=== PATIENT | male | born 1965 | race African-American/Black ===

== ENCOUNTER 2019-03-15 23:46 | Emergency (ER) | payer SELFPAY ==
[~2019-03-15] VITALS: Ht 175.3 cm; Wt 84.1 kg
[2019-03-16] MEDS ORDERED: LABETALOL HCL 5 MG/ML 20 ML VIAL IVP ONE ×2 (00:45→02:00)
[2019-03-16 00:55] LABS: GLUCOSE,POINT OF CARE 91 MG/DL (70-110)
[2019-03-16 01:12] LABS: EOSINOPHILS % (AUTO) 0.5 % (1.0-6.0); HEMATOCRIT 43.4 % (41-53); HEMOGLOBIN 14.3 g/dL (13.5-17.5); LYMPHOCYTES # (AUTO) 1.7 K/uL (1.0-4.8); LYMPHOCYTES % (AUTO) 23.8 % (22.0-44.0); MEAN CORPUSCULAR HEMOGLOBIN 30.4 pg (26.0-34.0); MEAN CORPUSCULAR HGB CONC 32.9 G/dL (31.0-37.0); MEAN CORPUSCULAR VOLUME 92 fL (80-100); MONOCYTES # (AUTO) 0.5 K/uL (0.1-1.0); MONOCYTES % (AUTO) 6.4 % (2.0-9.0); NEUTROPHILS % (AUTO) 68.3 % (40.0-70.0); PLATELET COUNT (AUTO) 285 K/uL (150-450); RED CELL DISTRIBUTION WIDTH 14.4 % (11.5-14.5)
[2019-03-16 01:21] LABS: PROTHROMBIN TIME 10.3 SEC (9.4-11.6)
[2019-03-16 01:23] LABS: ANION GAP 8 mmol/L (8-16); CARBON DIOXIDE 26 mmol/L (22-29); CHLORIDE 105 mmol/L (98-107); CREATININE 1.66 mg/dL (0.60-1.30); GLOMERULAR FILTR. RATE CALC 52 mL/min (>60); GLUCOSE,RANDOM 86 mg/dL (70-110); POTASSIUM 3.5 mmol/L (3.5-5.1); SODIUM SERUM 139 mmol/L (136-145); UREA NITROGEN, BLOOD 14 mg/dL (7-18)
[2019-03-16 01:48] LABS: ALANINE AMINOTRANSFERASE 22 U/L (12-78); ALBUMIN 4.4 g/dL (3.4-5.0); ALKALINE PHOSPHATASE 63 U/L (46-116); ASPARTATE AMINOTRANSFERASE 22 U/L (15-37); BILIRUBIN,TOTAL 0.7 mg/dL (0.1-1.0); CREATINE KINASE, TOTAL ONLY 279 U/L (39-308); TOTAL PROTEIN, SERUM 8.1 g/dL (6.4-8.2)
[2019-03-16 01:50] LABS: ACETAMINOPHEN < 2 mcg/mL (10-30)
[2019-03-16 02:20] VITALS: BP 196/124
== END 2019-03-16 03:13 | disposition left against medical advice (07) ==
LOC: EMS 23:51
DX: F12.10 Cannabis abuse, uncomplicated (principal); F10.10 Alcohol abuse, uncomplicated; I10 Essential (primary) hypertension; Y90.3 Blood alcohol level of 60-79 mg/100 ml
CPT/HCPCS: 36415; 70450; 80053; 82550; 82962; 84484; 85025; 85610; 93005; 96374; 96376; 99291; G0480; J3490; G0481

== ENCOUNTER 2019-07-25 17:35 | Inpatient (IN) | payer MEDICAID ==
[~2019-07-25] VITALS: Ht 180.3 cm; Wt 88.5 kg
[2019-07-25] MEDS ORDERED: SODIUM CHLORIDE 0.9% 1,000 ML IV ONE (18:15)
[2019-07-25] MEDS: LABETALOL HCL 200 MG in DEXTROSE 5%-WATER 160 ML IV PRN ×2 (18:40→20:02)
[2019-07-25 18:52] LABS: BASOPHILS % (AUTO) 0.6 % (0.0-2.0); HEMATOCRIT 43.1 % (41-53); HEMOGLOBIN 14.5 g/dL (13.5-17.5); LYMPHOCYTES # (AUTO) 0.7 K/uL (1.0-4.8); LYMPHOCYTES % (AUTO) 10.7 % (22.0-44.0); MEAN CORPUSCULAR HEMOGLOBIN 30.9 pg (26.0-34.0); MEAN CORPUSCULAR HGB CONC 33.8 G/dL (31.0-37.0); MEAN CORPUSCULAR VOLUME 91 fL (80-100); MONOCYTES # (AUTO) 0.6 K/uL (0.1-1.0); MONOCYTES % (AUTO) 9.1 % (2.0-9.0); NEUTROPHILS # (AUTO) 5.4 K/uL (1.8-7.7); NEUTROPHILS % (AUTO) 78.6 % (40.0-70.0); PLATELET COUNT (AUTO) 264 K/uL (150-450); RED BLOOD CELL COUNT(AUTO) 4.71 MIL/uL (4.50-5.90); RED CELL DISTRIBUTION WIDTH 13.5 % (11.5-14.5)
[2019-07-25 19:05] LABS: CALCIUM, TOTAL 9.3 mg/dL (8.8-10.5); CREATININE 1.83 mg/dL (0.60-1.30); POTASSIUM 4.1 mmol/L (3.5-5.1)
[2019-07-25 19:08] LABS: AMPHET/METH SCREEN,URINE NEGATIVE (NEGATIVE); BARBITURATE SCREEN, URINE NEGATIVE (NEGATIVE); BENZODIAZEPINES SCREEN,URINE NEGATIVE (NEGATIVE); CANNABINOID SCREEN,URINE POSITIVE (NEGATIVE); COCAINE SCREEN,URINE NEGATIVE (NEGATIVE); METHADONE SCREEN, URINE NEGATIVE (NEGATIVE); OPIATE SCREEN,URINE NEGATIVE (NEGATIVE)
[2019-07-25 19:09] LABS: APPEARANCE,URINE CLEAR (CLEAR); BILIRUBIN,URINE NEGATIVE (NEGATIVE); GLUCOSE, URINE (UA) NEGATIVE (NEGATIVE); KETONES,URINE NEGATIVE (NEGATIVE); LEUKOCYTE ESTERASE ,URINE NEGATIVE (NEGATIVE); NITRATE,URINE NEGATIVE (NEGATIVE); OCCULT BLOOD,URINE NEGATIVE (NEGATIVE); PROTEIN,URINE NEGATIVE (NEGATIVE); UROBILINOGEN,URINE 0.2 mg/dL (<=1.0)
[2019-07-25 19:14] LABS: PHENCYCLIDINE SCREEN,URINE POSITIVE (NEGATIVE)
[2019-07-25 19:29] LABS: ALBUMIN 4.4 g/dL (3.4-5.0); BILIRUBIN,TOTAL 1.1 mg/dL (0.1-1.0); TOTAL PROTEIN, SERUM 8.6 g/dL (6.4-8.2)
[2019-07-25 20:21] LABS: AMMONIA 19 umol/L (11-32)
[2019-07-25 20:22] LABS: TROPONIN I < 0.02 ng/mL (0.00-0.05)
[2019-07-25] MEDS ORDERED: ONDANSETRON HCL 4 MG/2 ML VIAL IVP PRN ×2 (20:30→22:30)
[2019-07-25] MEDS ORDERED: ACETAMINOPHEN 325 MG TABLET PO PRN (20:30)
[2019-07-25 20:44] VITALS: BP 176/109
[2019-07-25] MEDS: CARVEDILOL 12.5 MG TABLET PO SCH (21:46)
[2019-07-25] MEDS: HydrALAZINE HCL 20 MG/ML VIAL IVP PRN (21:54)
[2019-07-25] MEDS ORDERED: MAGNESIUM HYDROXIDE SUSPENSION 30 ML UDCUP PO PRN (22:30)
[2019-07-25] MEDS ORDERED: MORPHINE SULFATE 2 MG/ML SYRINGE IVP PRN (22:30)
[2019-07-25] MEDS ORDERED: HYDROCODONE/ACETAMINOPHEN 5-325 MG TABLET PO PRN (22:30)
[2019-07-25] MEDS ORDERED: BISACODYL 10 MG RECTAL RECTAL SUPPOSITORY PR PRN (22:30)
[2019-07-25] MEDS ORDERED: ZOLPIDEM TARTRATE 5 MG TABLET PO PRN (22:30)
[2019-07-25] MEDS: HEPARIN SODIUM,PORCINE 5,000 UNITS/ML VIAL SQ SCH (23:54)
[2019-07-26] VITALS: BP 183/99
[2019-07-26 04:00] VITALS: BP 165/105
[2019-07-26 05:00] LABS: BASOPHILS % (AUTO) 0.3 % (0.0-2.0); EOSINOPHILS % (AUTO) 0.5 % (1.0-6.0); HEMATOCRIT 36.7 % (41-53); HEMOGLOBIN 12.5 g/dL (13.5-17.5); LYMPHOCYTES # (AUTO) 0.4 K/uL (1.0-4.8); MEAN CORPUSCULAR HEMOGLOBIN 30.8 pg (26.0-34.0); MEAN CORPUSCULAR HGB CONC 34.1 G/dL (31.0-37.0); MEAN CORPUSCULAR VOLUME 90 fL (80-100); MONOCYTES # (AUTO) 0.8 K/uL (0.1-1.0); MONOCYTES % (AUTO) 13.4 % (2.0-9.0); NEUTROPHILS # (AUTO) 4.7 K/uL (1.8-7.7); NEUTROPHILS % (AUTO) 78.8 % (40.0-70.0); PLATELET COUNT (AUTO) 239 K/uL (150-450); RED BLOOD CELL COUNT(AUTO) 4.07 MIL/uL (4.50-5.90); RED CELL DISTRIBUTION WIDTH 13.5 % (11.5-14.5)
[2019-07-26 05:14] LABS: ALBUMIN 3.5 g/dL (3.4-5.0); BILIRUBIN,TOTAL 0.7 mg/dL (0.1-1.0); CALCIUM, TOTAL 8.8 mg/dL (8.8-10.5); CREATININE 1.48 mg/dL (0.60-1.30); POTASSIUM 4.2 mmol/L (3.5-5.1); TOTAL PROTEIN, SERUM 6.9 g/dL (6.4-8.2)
[2019-07-26] MEDS: HydrALAZINE HCL 20 MG/ML VIAL IVP PRN ×2 (05:41→12:39)
[2019-07-26 08:00] VITALS: BP 163/108
[2019-07-26] MEDS: PANTOPRAZOLE SODIUM 40 MG DR TABLET PO SCH (08:20)
[2019-07-26] MEDS: HEPARIN SODIUM,PORCINE 5,000 UNITS/ML VIAL SQ SCH ×2 (08:20→17:11)
[2019-07-26] MEDS: DOCUSATE SODIUM 100 MG CAPSULE PO SCH ×2 (08:20→21:00)
[2019-07-26] MEDS: CARVEDILOL 12.5 MG TABLET PO SCH (08:28)
[2019-07-26] MEDS ORDERED: CARVEDILOL 25 MG TABLET PO SCH (09:00)
[2019-07-26] MEDS ORDERED: CARVEDILOL 12.5 MG TABLET PO ONE (09:45)
[2019-07-26] MEDS: AmLODIPine BESYLATE 10 MG TABLET PO SCH (10:24)
[2019-07-26 12:00] VITALS: BP 164/103
[2019-07-26] MEDS ORDERED: HydrALAZINE HCL 20 MG/ML VIAL IVP PRN (13:15)
[2019-07-26 15:22] VITALS: BP 132/90
[2019-07-26 20:06] VITALS: BP 139/86
[2019-07-26] MEDS: CARVEDILOL 25 MG TABLET PO SCH (22:44)
[2019-07-26] MEDS: ACETAMINOPHEN 325 MG TABLET PO PRN (22:47)
[2019-07-27 00:01] VITALS: BP 135/71
[2019-07-27] MEDS: HEPARIN SODIUM,PORCINE 5,000 UNITS/ML VIAL SQ SCH ×3 (00:35→16:00)
[2019-07-27 05:25] VITALS: BP 146/89
[2019-07-27 07:27] VITALS: BP 148/88
[2019-07-27] MEDS: CARVEDILOL 25 MG TABLET PO SCH (08:46)
[2019-07-27] MEDS: DOCUSATE SODIUM 100 MG CAPSULE PO SCH (08:46)
[2019-07-27] MEDS: AmLODIPine BESYLATE 10 MG TABLET PO SCH (08:46)
[2019-07-27] MEDS: PANTOPRAZOLE SODIUM 40 MG DR TABLET PO SCH (08:46)
[2019-07-27] MEDS: ACETAMINOPHEN 325 MG TABLET PO PRN (09:06)
[2019-07-27] MEDS ORDERED: AMLO10TA7 PO (10:47)
[2019-07-27 11:15] VITALS: BP 126/87
[2019-07-27 16:23] VITALS: BP 136/90
== END 2019-07-27 17:30 | disposition home or self-care (01) | DRG 199 ==
LOC: EMS 17:36 → ICU 19:15 → 5S 07-26 14:15
PROVIDERS: ADMIT Internal Medicine; ATTEND Internal Medicine
DX: I16.1 Hypertensive emergency (principal); G93.41 Metabolic encephalopathy; F19.10 Other psychoactive substance abuse, uncomplicated; N18.9 Chronic kidney disease, unspecified; I12.9 Hypertensive chronic kidney disease with stage 1 through stage 4 chronic kidney disease, or unspecified chronic kidney disease; Z91.14 Patient's other noncompliance with medication regimen
CPT/HCPCS: 70450; 87081; 93005; 99291; G0378; G0480; J0360; J1644; J3490; J7030; J7060

== ENCOUNTER 2020-10-14 22:24 | Emergency (ER) | payer MEDICAID, OTHER ==
[~2020-10-14] VITALS: Ht 185.4 cm; Wt 89.0 kg
[~2020-10-14 22:24] MED LIST: AMLO-258 PO
[2020-10-14] MEDS ORDERED: SODIUM CHLORIDE 0.9% 1,000 ML IV ONE (22:45)
[2020-10-14 23:00] LABS: BASOPHILS % (AUTO) 0.7 % (0.0-2.0); EOSINOPHILS % (AUTO) 0.8 % (1.0-6.0); HEMATOCRIT 46.8 % (41-53); HEMOGLOBIN 15.5 g/dL (13.5-17.5); LYMPHOCYTES # (AUTO) 2.7 K/uL (1.0-4.8); LYMPHOCYTES % (AUTO) 27.5 % (22.0-44.0); MEAN CORPUSCULAR HEMOGLOBIN 31.4 pg (26.0-34.0); MEAN CORPUSCULAR VOLUME 95 fL (80-100); MONOCYTES # (AUTO) 0.6 K/uL (0.1-1.0); MONOCYTES % (AUTO) 6.4 % (2.0-9.0); NEUTROPHILS # (AUTO) 6.4 K/uL (1.8-7.7); NEUTROPHILS % (AUTO) 64.6 % (40.0-70.0); PLATELET COUNT (AUTO) 287 K/uL (150-450); RED BLOOD CELL COUNT(AUTO) 4.93 MIL/uL (4.50-5.90); RED CELL DISTRIBUTION WIDTH 14.1 % (11.5-14.5)
[2020-10-14 23:11] LABS: ANION GAP 14 mmol/L (8-16); CALCIUM, TOTAL 9.5 mg/dL (8.8-10.5); CARBON DIOXIDE 25 mmol/L (22-29); CHLORIDE 105 mmol/L (98-107); CREATININE 1.69 mg/dL (0.60-1.30); GLOMERULAR FILTR. RATE CALC 51 mL/min (>60); GLUCOSE,RANDOM 102 mg/dL (70-110); POTASSIUM 5.1 mmol/L (3.5-5.1); SODIUM SERUM 144 mmol/L (136-145); UREA NITROGEN, BLOOD 23 mg/dL (7-18)
[2020-10-14] MEDS ORDERED: LABETALOL HCL 5 MG/ML 20 ML VIAL IVP ONE (23:15)
[2020-10-14 23:17] LABS: SALICYLATE 1.5 mg/dL (2.8-20.0)
[2020-10-14 23:36] LABS: ALANINE AMINOTRANSFERASE 23 U/L (12-78); ALBUMIN 4.8 g/dL (3.4-5.0); ALKALINE PHOSPHATASE 71 U/L (46-116); ASPARTATE AMINOTRANSFERASE 37 U/L (15-37); BILIRUBIN,TOTAL 0.7 mg/dL (0.1-1.0); CREATINE KINASE, TOTAL ONLY 279 U/L (39-308); TOTAL PROTEIN, SERUM 9.3 g/dL (6.4-8.2)
[2020-10-14 23:38] LABS: ACETAMINOPHEN < 2 mcg/mL (10-30)
[2020-10-14] MEDS ORDERED: LORazepam 2 MG/ML VIAL IVP ONE (23:45)
[2020-10-15 04:45] VITALS: BP 116/85
== END 2020-10-15 05:00 | disposition home or self-care (01) ==
LOC: EMS 22:24
DX: T40.1X1A Poisoning by heroin, accidental (unintentional), initial encounter (principal); T40.991A Poisoning by other psychodysleptics [hallucinogens], accidental (unintentional), initial encounter; I10 Essential (primary) hypertension; Y92.89 Other specified places as the place of occurrence of the external cause
CPT/HCPCS: 36415; 71045; 80053; 82550; 82962; 85025; 93005; 96361; 96374; 96375; 99291; G0480; J2060; J3490; 99285; G0481

== ENCOUNTER 2020-11-18 20:15 | Emergency (ER) | payer OTHER ==
[~2020-11-18] VITALS: Ht 180.3 cm; Wt 100.0 kg
[2020-11-18] MEDS ORDERED: ATEN-73 PO (20:44)
[2020-11-18] MEDS ORDERED: LORazepam 2 MG/ML VIAL IVP ONE (20:45)
[2020-11-18] MEDS ORDERED: HydrALAZINE HCL 20 MG/ML VIAL IVP ONE ×2 (20:45→21:30)
[2020-11-18 21:13] LABS: BASOPHILS % (AUTO) 0.8 % (0.0-2.0); HEMATOCRIT 43.4 % (41-53); HEMOGLOBIN 14.7 g/dL (13.5-17.5); LYMPHOCYTES # (AUTO) 1.9 K/uL (1.0-4.8); LYMPHOCYTES % (AUTO) 21.5 % (22.0-44.0); MEAN CORPUSCULAR HEMOGLOBIN 31.9 pg (26.0-34.0); MEAN CORPUSCULAR HGB CONC 33.9 G/dL (31.0-37.0); MEAN CORPUSCULAR VOLUME 94 fL (80-100); MONOCYTES # (AUTO) 0.6 K/uL (0.1-1.0); MONOCYTES % (AUTO) 6.3 % (2.0-9.0); NEUTROPHILS # (AUTO) 6.2 K/uL (1.8-7.7); NEUTROPHILS % (AUTO) 70.4 % (40.0-70.0); PLATELET COUNT (AUTO) 293 K/uL (150-450); RED BLOOD CELL COUNT(AUTO) 4.61 MIL/uL (4.50-5.90); RED CELL DISTRIBUTION WIDTH 13.7 % (11.5-14.5)
[2020-11-18 21:22] LABS: AMPHET/METH SCREEN,URINE NEGATIVE (NEGATIVE); BARBITURATE SCREEN, URINE NEGATIVE (NEGATIVE); BENZODIAZEPINES SCREEN,URINE NEGATIVE (NEGATIVE); CALCIUM, TOTAL 9.8 mg/dL (8.8-10.5); CANNABINOID SCREEN,URINE NEGATIVE (NEGATIVE); COCAINE SCREEN,URINE NEGATIVE (NEGATIVE); CREATININE 1.66 mg/dL (0.60-1.30); METHADONE SCREEN, URINE NEGATIVE (NEGATIVE); OPIATE SCREEN,URINE NEGATIVE (NEGATIVE); PHENCYCLIDINE SCREEN,URINE POSITIVE (NEGATIVE); POTASSIUM 4.1 mmol/L (3.5-5.1)
[2020-11-18 21:28] LABS: ALBUMIN 4.7 g/dL (3.4-5.0); BILIRUBIN,TOTAL 0.7 mg/dL (0.1-1.0)
[2020-11-18 22:05] VITALS: BP 237/146
== END 2020-11-18 22:12 | disposition home or self-care (01) ==
LOC: EMS 20:17
DX: I10 Essential (primary) hypertension (principal); F16.10 Hallucinogen abuse, uncomplicated
CPT/HCPCS: 36415; 80053; 80307; 85025; 96374; 96375; 96376; 99284; J0360; J2060

== ENCOUNTER 2021-07-27 23:04 | Emergency (ER) | payer OTHER ==
[~2021-07-27] VITALS: Ht 180.3 cm; Wt 93.3 kg
[~2021-07-27 23:04] MED LIST changes: -AMLO-258 PO; +ATEN-73 PO
[2021-07-27] MEDS ORDERED: HydrALAZINE HCL 20 MG/ML VIAL IVP ONE (23:15)
[2021-07-27] MEDS ORDERED: FAMOTIDINE 10 MG/ML 2 ML VIAL IVP ONE (23:15)
[2021-07-27] MEDS ORDERED: DiphenhydrAMINE HCL 50 MG/ML VIAL IVP ONE (23:15)
[2021-07-27] MEDS ORDERED: EPINEPHrine 1:1,000 [1 MG/ML] AMP IM ONE ×2 (23:15→23:45)
[2021-07-27] MEDS ORDERED: MethylPREDNISolone SOD SUCC 125 MG/2 ML VIAL IVP ONE (23:15)
[2021-07-27] MEDS ORDERED: TRANEXAMIC ACID 1,000 MG in DEXTROSE 5%-WATER 50 ML IV ONE (23:30)
[2021-07-27 23:32] LABS: BASOPHILS % (AUTO) 0.9 % (0.0-2.0); EOSINOPHILS % (AUTO) 1.6 % (1.0-6.0); HEMATOCRIT 41.7 % (41-53); HEMOGLOBIN 13.9 g/dL (13.5-17.5); LYMPHOCYTES # (AUTO) 1.7 K/uL (1.0-4.8); LYMPHOCYTES % (AUTO) 18.7 % (22.0-44.0); MEAN CORPUSCULAR HEMOGLOBIN 31.1 pg (26.0-34.0); MEAN CORPUSCULAR HGB CONC 33.3 G/dL (31.0-37.0); MEAN CORPUSCULAR VOLUME 93 fL (80-100); MONOCYTES # (AUTO) 0.7 K/uL (0.1-1.0); MONOCYTES % (AUTO) 7.9 % (2.0-9.0); NEUTROPHILS # (AUTO) 6.3 K/uL (1.8-7.7); NEUTROPHILS % (AUTO) 70.9 % (40.0-70.0); PLATELET COUNT (AUTO) 280 K/uL (150-450); RED BLOOD CELL COUNT(AUTO) 4.48 MIL/uL (4.50-5.90); RED CELL DISTRIBUTION WIDTH 13.2 % (11.5-14.5)
[2021-07-27 23:42] LABS: CALCIUM, TOTAL 8.8 mg/dL (8.8-10.5); CREATININE 1.75 mg/dL (0.60-1.30)
[2021-07-27 23:52] LABS: ALBUMIN 3.4 g/dL (3.4-5.0); BILIRUBIN,TOTAL 0.6 mg/dL (0.1-1.0); TOTAL PROTEIN, SERUM 6.6 g/dL (6.4-8.2)
[2021-07-28] MEDS ORDERED: LIDOCAINE 4% 50 ML SOLUTION NEB ONE (00:15)
[2021-07-28] MEDS ORDERED: PROPOFOL 1000 MG/ISO-OSM 100 ML IV PRN (00:30)
[2021-07-28] MEDS ORDERED: PROPOFOL 1000 MG/ISO-OSM 100 ML ONE (00:34)
[2021-07-28] MEDS ORDERED: HydrALAZINE HCL 20 MG/ML VIAL IVP ONE (01:00)
[2021-07-28] MEDS ORDERED: AMPICILLIN SODIUM/SULBACTAM NA 3 GM in SODIUM CHLORIDE 0.9% 100 ML IV ONE (01:30)
[2021-07-28 02:05] VITALS: BP 153/100
== END 2021-07-28 02:00 | disposition short-term general hospital (02) ==
LOC: EMS 23:05
DX: T78.3XXA Angioneurotic edema, initial encounter (principal); I10 Essential (primary) hypertension; F16.90 Hallucinogen use, unspecified, uncomplicated; Z79.899 Other long term (current) drug therapy
CPT/HCPCS: 36415; 71045; 80053; 82550; 83880; 84484; 85025; 86850; 86900; 86901; 96365; 96372; 96375; 96376; 99291; J0171; J0295; J0360 ×2; J1200; J2704; J2930; J3490 ×2; J7050; J7060; Z7610

== ENCOUNTER 2022-04-05 21:46 | Emergency (ER) | payer OTHER | END 2022-04-05 23:08 | disposition left against medical advice (07) | LOC: EMS 21:47 | DX: Z53.21 Procedure and treatment not carried out due to patient leaving prior to being seen by health care provider (principal) ==

== ENCOUNTER 2023-08-17 22:29 | Inpatient (IN) | payer OTHER ==
[~2023-08-17] VITALS: Ht 180.3 cm; Wt 88.4 kg
[2023-08-17] MEDS ORDERED: LABETALOL HCL 5 MG/ML 20 ML VIAL IVP ONE (23:15)
[2023-08-17] MEDS ORDERED: NITROGLYCERIN 2% (1 GM=INCH) OINTMENT PACKET TP ONE (23:15)
[2023-08-17 23:25] LABS: BASOPHILS % (AUTO) 0.9 % (0.0-2.0); EOSINOPHILS % (AUTO) 3.7 % (1.0-6.0); HEMATOCRIT 41.2 % (41-53); HEMOGLOBIN 13.9 g/dL (13.5-17.5); LYMPHOCYTES # (AUTO) 1.8 K/uL (1.0-4.8); LYMPHOCYTES % (AUTO) 25.2 % (22.0-44.0); MEAN CORPUSCULAR HGB CONC 33.6 G/dL (31.0-37.0); MEAN CORPUSCULAR VOLUME 92 fL (80-100); MONOCYTES # (AUTO) 0.4 K/uL (0.1-1.0); MONOCYTES % (AUTO) 5.2 % (2.0-9.0); NEUTROPHILS # (AUTO) 4.7 K/uL (1.8-7.7); PLATELET COUNT (AUTO) 296 K/uL (150-450); RED BLOOD CELL COUNT(AUTO) 4.47 MIL/uL (4.50-5.90); RED CELL DISTRIBUTION WIDTH 14.6 % (11.5-14.5); WHITE BLOOD COUNT (AUTO) 7.3 K/uL (4.5-11.0)
[2023-08-17 23:34] LABS: CALCIUM, TOTAL 9.3 mg/dL (8.8-10.5); CREATININE 1.73 mg/dL (0.60-1.30); POTASSIUM 3.8 mmol/L (3.5-5.1)
[2023-08-17 23:42] LABS: TROPONIN I-HIGH SENSITIVITY 38 ng/L (<76)
[2023-08-17 23:57] LABS: ALBUMIN 4.5 g/dL (3.4-5.0); BILIRUBIN,TOTAL 0.7 mg/dL (0.1-1.0); TOTAL PROTEIN, SERUM 8.5 g/dL (6.4-8.2)
[2023-08-18 00:11] LABS: APPEARANCE,URINE CLEAR (CLEAR); BILIRUBIN,URINE NEGATIVE (NEGATIVE); COLOR,URINE COLORLESS (YELLOW); GLUCOSE, URINE (UA) NEGATIVE (NEGATIVE); KETONES,URINE NEGATIVE (NEGATIVE); LEUKOCYTE ESTERASE ,URINE NEGATIVE (NEGATIVE); NITRATE,URINE NEGATIVE (NEGATIVE); OCCULT BLOOD,URINE NEGATIVE (NEGATIVE); PH,URINE 5.5 (5.0-8.0); PH,URINE DRUG SCREEN 5.5 (5.0-8.0); PROTEIN,URINE TRACE mg/dL (NEGATIVE); SPECIFIC GRAVITIY, URINE 1.006 (1.003-1.030); UROBILINOGEN,URINE <=1.0 mg/dL (<=1.0)
[2023-08-18 00:18] LABS: ALCOHOL, URINE DRUG SCREEN POSITIVE (NEGATIVE); AMPHET/METH SCREEN,URINE NEGATIVE (NEGATIVE); BARBITURATE SCREEN, URINE NEGATIVE (NEGATIVE); BENZODIAZEPINES SCREEN,URINE NEGATIVE (NEGATIVE); CANNABINOID SCREEN,URINE NEGATIVE (NEGATIVE); COCAINE SCREEN,URINE NEGATIVE (NEGATIVE); METHADONE SCREEN, URINE NEGATIVE (NEGATIVE); OPIATE SCREEN,URINE NEGATIVE (NEGATIVE); PHENCYCLIDINE SCREEN,URINE POSITIVE (NEGATIVE)
[2023-08-18] MEDS: NiCARDipine HCL 25 MG in SODIUM CHLORIDE 0.9% 240 ML IV PRN ×3 (00:23→10:19)
[2023-08-18 01:05] LABS: COVID AG,FIA SOURCE NASAL SWAB
[2023-08-18] MEDS ORDERED: 0.9% SODIUM CHLORIDE 10 ML SYRINGE IVP PRN (01:15)
[2023-08-18] MEDS ORDERED: ACETAMINOPHEN 325 MG TABLET PO PRN ×2 (01:15→07:45)
[2023-08-18] MEDS ORDERED: ONDANSETRON HCL 4 MG/2 ML VIAL IVP PRN ×2 (01:15→07:45)
[2023-08-18 01:27] LABS: SARS-COV2 (COVID) ANTIGEN,FIA Negative (Negative)
[2023-08-18 01:58] VITALS: PULSE 91
[2023-08-18 02:45] LABS: TROPONIN I-HIGH SENSITIVITY 36 ng/L (<76)
[2023-08-18] MEDS ORDERED: INFLUENZA VIRUS VACCINE QVS 2023-24 (6MO+)/PF 60 MCG/0.5 ML SYRINGE IM. ONE (03:45)
[2023-08-18] MEDS ORDERED: PNEUMOCOCCAL VACCINE POLYVALENT 0.5 ML SYRINGE [PPSV23] IM. ONE (03:45)
[2023-08-18 04:00] VITALS: BP 157/98; PULSE 76; RESP 11; TEMP 98.1
[2023-08-18 07:39] LABS: BASOPHILS % (AUTO) 0.9 % (0.0-2.0); EOSINOPHILS % (AUTO) 3.2 % (1.0-6.0); HEMATOCRIT 42.1 % (41-53); HEMOGLOBIN 14.5 g/dL (13.5-17.5); LYMPHOCYTES # (AUTO) 1.4 K/uL (1.0-4.8); LYMPHOCYTES % (AUTO) 17.7 % (22.0-44.0); MEAN CORPUSCULAR HEMOGLOBIN 31.4 pg (26.0-34.0); MEAN CORPUSCULAR HGB CONC 34.4 G/dL (31.0-37.0); MEAN CORPUSCULAR VOLUME 91 fL (80-100); MONOCYTES # (AUTO) 0.4 K/uL (0.1-1.0); MONOCYTES % (AUTO) 5.1 % (2.0-9.0); NEUTROPHILS # (AUTO) 5.9 K/uL (1.8-7.7); NEUTROPHILS % (AUTO) 73.1 % (40.0-70.0); PLATELET COUNT (AUTO) 302 K/uL (150-450); RED BLOOD CELL COUNT(AUTO) 4.61 MIL/uL (4.50-5.90); WHITE BLOOD COUNT (AUTO) 8.1 K/uL (4.5-11.0)
[2023-08-18] MEDS ORDERED: OxyCODONE HCL/ACETAMINOPHEN 5-325 MG TABLET PO PRN (07:45)
[2023-08-18] MEDS ORDERED: LORazepam 2 MG/ML VIAL IVP PRN (07:45)
[2023-08-18 08:00] VITALS: BP 166/94; PULSE 71; RESP 10; TEMP 98.4
[2023-08-18 08:20] LABS: CALCIUM, TOTAL 9.7 mg/dL (8.8-10.5); CREATININE 1.51 mg/dL (0.60-1.30)
[2023-08-18 08:54] LABS: TROPONIN I-HIGH SENSITIVITY 41 ng/L (<76)
[2023-08-18] MEDS: HEPARIN SODIUM,PORCINE 5,000 UNITS/ML VIAL SQ SCH ×2 (08:54→16:16)
[2023-08-18] MEDS: FAMOTIDINE 20 MG TABLET PO SCH ×2 (08:54→21:25)
[2023-08-18] MEDS: MULTIVITAMINS WITH MINERALS, THERAPEUTIC TABLET PO SCH (08:54)
[2023-08-18] MEDS: DOCUSATE SODIUM 100 MG CAPSULE PO SCH ×3 (08:54→21:27)
[2023-08-18] MEDS: LOSARTAN POTASSIUM 50 MG TABLET PO SCH ×2 (08:54→21:25)
[2023-08-18] MEDS: METOPROLOL SUCCINATE 25 MG ER TABLET PO SCH (08:54)
[2023-08-18 12:00] VITALS: BP 170/114; PULSE 75; RESP 10; TEMP 98.2
[2023-08-18 13:58] LABS: TROPONIN I-HIGH SENSITIVITY 36 ng/L (<76)
[2023-08-18 16:00] VITALS: BP 172/108; PULSE 72; RESP 12; TEMP 99.1
[2023-08-18] MEDS: AmLODIPine BESYLATE 10 MG TABLET PO SCH (17:29)
[2023-08-18 20:00] VITALS: BP 175/109; PULSE 74; PULSE 75; RESP 18; TEMP 98.7
[2023-08-18] MEDS: CHLORHEXIDINE GLUCONATE 2% TOWELETTE [2'S/6'S] TP SCH (21:28)
[2023-08-19] VITALS (8 sets, daily range): BP systolic 140–170; BP diastolic 87–109; PULSE 63–84; RESP 12–19; TEMP 98.3–98.8
[2023-08-19] MEDS: HEPARIN SODIUM,PORCINE 5,000 UNITS/ML VIAL SQ SCH ×3 (00:06→16:00)
[2023-08-19] MEDS: CloNIDine HCL 0.1 MG TABLET PO PRN ×2 (05:08→16:58)
[2023-08-19 05:55] LABS: BASOPHILS % (AUTO) 0.8 % (0.0-2.0); EOSINOPHILS % (AUTO) 4.3 % (1.0-6.0); HEMATOCRIT 37.2 % (41-53); HEMOGLOBIN 12.7 g/dL (13.5-17.5); LYMPHOCYTES # (AUTO) 1.1 K/uL (1.0-4.8); LYMPHOCYTES % (AUTO) 18.8 % (22.0-44.0); MEAN CORPUSCULAR HEMOGLOBIN 31.4 pg (26.0-34.0); MEAN CORPUSCULAR HGB CONC 34.3 G/dL (31.0-37.0); MEAN CORPUSCULAR VOLUME 92 fL (80-100); MONOCYTES # (AUTO) 0.3 K/uL (0.1-1.0); MONOCYTES % (AUTO) 5.8 % (2.0-9.0); NEUTROPHILS # (AUTO) 4.1 K/uL (1.8-7.7); NEUTROPHILS % (AUTO) 70.3 % (40.0-70.0); PLATELET COUNT (AUTO) 274 K/uL (150-450); RED BLOOD CELL COUNT(AUTO) 4.05 MIL/uL (4.50-5.90); RED CELL DISTRIBUTION WIDTH 14.4 % (11.5-14.5); WHITE BLOOD COUNT (AUTO) 5.8 K/uL (4.5-11.0)
[2023-08-19 06:02] LABS: CALCIUM, TOTAL 9.1 mg/dL (8.8-10.5); POTASSIUM 4.5 mmol/L (3.5-5.1)
[2023-08-19 08:06] LABS: HEPATITIS C AB (EIA) Non Reactive (Non Reactive)
[2023-08-19] MEDS: DOCUSATE SODIUM 100 MG CAPSULE PO SCH ×2 (08:13→20:27)
[2023-08-19] MEDS: AmLODIPine BESYLATE 10 MG TABLET PO SCH ×3 (08:25→20:26)
[2023-08-19] MEDS: FAMOTIDINE 20 MG TABLET PO SCH ×2 (08:25→20:26)
[2023-08-19] MEDS: MULTIVITAMINS WITH MINERALS, THERAPEUTIC TABLET PO SCH (08:29)
[2023-08-19] MEDS: LOSARTAN POTASSIUM 50 MG TABLET PO SCH ×2 (08:29→20:27)
[2023-08-19] MEDS: METOPROLOL SUCCINATE 25 MG ER TABLET PO SCH (08:29)
[2023-08-19 15:36] LABS: APPEARANCE,URINE CLEAR (CLEAR); BILIRUBIN,URINE NEGATIVE (NEGATIVE); COLOR,URINE YELLOW (YELLOW); GLUCOSE, URINE (UA) NEGATIVE (NEGATIVE); KETONES,URINE NEGATIVE (NEGATIVE); LEUKOCYTE ESTERASE ,URINE NEGATIVE (NEGATIVE); NITRATE,URINE NEGATIVE (NEGATIVE); OCCULT BLOOD,URINE NEGATIVE (NEGATIVE); PH,URINE 5.5 (5.0-8.0); PROTEIN,URINE 30-70 mg/dL (NEGATIVE); SPECIFIC GRAVITIY, URINE 1.026 (1.003-1.030); UROBILINOGEN,URINE <=1.0 mg/dL (<=1.0)
[2023-08-19 16:04] LABS: BACTERIA,URINE None Seen /HPF (None Seen); RBC,URINE None Seen /HPF (0-2); SQUAMOUS EPITHELIAL CELL,UR Few /LPF (None Seen); WBC,URINE None Seen /HPF (0-5)
[2023-08-19] MEDS: CHLORHEXIDINE GLUCONATE 2% TOWELETTE [2'S/6'S] TP SCH (22:00)
[2023-08-20 00:28] VITALS: BP 149/86; PULSE 69; RESP 18; TEMP 97.9
[2023-08-20 04:05] VITALS: BP 142/96; PULSE 67; RESP 18; TEMP 98
[2023-08-20 07:07] LABS: CALCIUM, TOTAL 8.9 mg/dL (8.8-10.5); POTASSIUM 4.5 mmol/L (3.5-5.1)
[2023-08-20] MEDS: HEPARIN SODIUM,PORCINE 5,000 UNITS/ML VIAL SQ SCH ×2 (08:00)
[2023-08-20 08:02] VITALS: BP 180/109; PULSE 62; RESP 18; TEMP 98.1
[2023-08-20] MEDS: DOCUSATE SODIUM 100 MG CAPSULE PO SCH (08:03)
[2023-08-20] MEDS: METOPROLOL SUCCINATE 25 MG ER TABLET PO SCH (08:04)
[2023-08-20] MEDS: AmLODIPine BESYLATE 10 MG TABLET PO SCH (08:04)
[2023-08-20] MEDS: MULTIVITAMINS WITH MINERALS, THERAPEUTIC TABLET PO SCH (08:04)
[2023-08-20] MEDS: LOSARTAN POTASSIUM 50 MG TABLET PO SCH (08:04)
[2023-08-20] MEDS: FAMOTIDINE 20 MG TABLET PO SCH (08:05)
[2023-08-20] MEDS ORDERED: AMLO-258 PO (11:00)
[2023-08-20] MEDS ORDERED: LOSA-382 PO (11:01)
[2023-08-20] MEDS ORDERED: METO25XL PO (11:05)
[2023-08-20] MEDS: CloNIDine HCL 0.1 MG TABLET PO PRN (12:02)
[2023-08-20 12:08] VITALS: BP 174/100; PULSE 71; RESP 18; TEMP 98.1
[2023-08-20 13:27] VITALS: BP 141/87; PULSE 66; RESP 18; TEMP 98.2
== END 2023-08-20 14:20 | disposition home or self-care (01) | DRG 199 ==
LOC: EMS 22:30 → ICUN 08-18 01:23 → UNDOADMIN 08-18 01:23 → ICU 08-18 01:23 → 5S 08-19 11:42
PROVIDERS: ADMIT Internal Medicine; ATTEND Internal Medicine
DX: I16.1 Hypertensive emergency (principal); N17.9 Acute kidney failure, unspecified; N18.9 Chronic kidney disease, unspecified; F19.10 Other psychoactive substance abuse, uncomplicated; Z20.822 Contact with and (suspected) exposure to COVID-19; I12.9 Hypertensive chronic kidney disease with stage 1 through stage 4 chronic kidney disease, or unspecified chronic kidney disease; Z79.899 Other long term (current) drug therapy
CPT/HCPCS: 71045; 80048; 80053; 80307; 81001; 81003; 82550; 83880; 84484; 85025; 86803; 87081; 87340; 90686; 90732; 93005; 93306; 99291; G0480; J1644; J3490; J7050; 36415-L1; 36415-TC; G0008

== ENCOUNTER 2023-09-30 11:49 | Inpatient (IN) | payer OTHER ==
[~2023-09-30] VITALS: Ht 180.3 cm; Wt 81.8 kg
[~2023-09-30 11:49] MED LIST changes: -ATEN-73 PO; +LOSA-382 PO
[2023-09-30 12:07] LABS: BASOPHILS % (AUTO) 0.4 % (0.0-2.0); EOSINOPHILS % (AUTO) 8.7 % (1.0-6.0); HEMATOCRIT 37.3 % (41-53); HEMOGLOBIN 12.3 g/dL (13.5-17.5); LYMPHOCYTES % (AUTO) 16.3 % (22.0-44.0); MEAN CORPUSCULAR HEMOGLOBIN 30.2 pg (26.0-34.0); MEAN CORPUSCULAR HGB CONC 32.9 G/dL (31.0-37.0); MEAN CORPUSCULAR VOLUME 92 fL (80-100); MONOCYTES # (AUTO) 0.5 K/uL (0.1-1.0); MONOCYTES % (AUTO) 7.9 % (2.0-9.0); NEUTROPHILS # (AUTO) 4.3 K/uL (1.8-7.7); NEUTROPHILS % (AUTO) 66.7 % (40.0-70.0); PLATELET COUNT (AUTO) 246 K/uL (150-450); RED BLOOD CELL COUNT(AUTO) 4.06 MIL/uL (4.50-5.90); RED CELL DISTRIBUTION WIDTH 14.9 % (11.5-14.5); WHITE BLOOD COUNT (AUTO) 6.4 K/uL (4.5-11.0)
[2023-09-30 12:18] LABS: CALCIUM, TOTAL 9.4 mg/dL (8.8-10.5); CREATININE 1.72 mg/dL (0.60-1.30); POTASSIUM 4.3 mmol/L (3.5-5.1)
[2023-09-30 12:22] LABS: TROPONIN I-HIGH SENSITIVITY 23 ng/L (<76)
[2023-09-30] MEDS: HydrALAZINE HCL 20 MG/ML VIAL IVP ONE ×2 (12:25→13:25)
[2023-09-30 12:39] LABS: ALBUMIN 4.1 g/dL (3.4-5.0); BILIRUBIN,TOTAL 0.6 mg/dL (0.1-1.0); TOTAL PROTEIN, SERUM 7.7 g/dL (6.4-8.2)
[2023-09-30] MEDS ORDERED: ACETAMINOPHEN 325 MG TABLET PO PRN (13:00)
[2023-09-30] MEDS ORDERED: ONDANSETRON HCL 4 MG/2 ML VIAL IVP PRN (13:00)
[2023-09-30] MEDS ORDERED: ZOLPIDEM TARTRATE 5 MG TABLET PO PRN (13:00)
[2023-09-30] MEDS: AmLODIPine BESYLATE 10 MG TABLET PO SCH (13:25)
[2023-09-30] MEDS: LOSARTAN POTASSIUM 50 MG TABLET PO SCH (13:25)
[2023-09-30 13:49] LABS: COVID AG,FIA SOURCE NASAL SWAB
[2023-09-30 13:57] LABS: APPEARANCE,URINE CLEAR (CLEAR); BILIRUBIN,URINE NEGATIVE (NEGATIVE); COLOR,URINE COLORLESS (YELLOW); GLUCOSE, URINE (UA) NEGATIVE (NEGATIVE); KETONES,URINE NEGATIVE (NEGATIVE); LEUKOCYTE ESTERASE ,URINE NEGATIVE (NEGATIVE); NITRATE,URINE NEGATIVE (NEGATIVE); OCCULT BLOOD,URINE NEGATIVE (NEGATIVE); PH,URINE 6.5 (5.0-8.0); PROTEIN,URINE NEGATIVE (NEGATIVE); SPECIFIC GRAVITIY, URINE 1.011 (1.003-1.030); UROBILINOGEN,URINE <=1.0 mg/dL (<=1.0)
[2023-09-30 14:12] LABS: SARS-COV2 (COVID) ANTIGEN,FIA Negative (Negative)
[2023-09-30 14:35] LABS: TROPONIN I-HIGH SENSITIVITY 27 ng/L (<76)
[2023-09-30] MEDS: CloNIDine HCL 0.1 MG TABLET PO PRN (14:44)
[2023-09-30 17:39] VITALS: BP 152/104; PULSE 72; RESP 19; TEMP 97.8
[2023-09-30 20:00] VITALS: BP 139/94; PULSE 80; RESP 18; TEMP 98.3
[2023-09-30] MEDS: DOCUSATE SODIUM 100 MG CAPSULE PO SCH (20:04)
[2023-09-30 23:24] VITALS: BP 139/94; PULSE 80; RESP 18; TEMP 98.3
[2023-10-01] VITALS: BP 174/109; PULSE 64; RESP 18; TEMP 98.1
[2023-10-01 04:45] VITALS: BP 141/98; PULSE 63; RESP 18; TEMP 98
[2023-10-01] MEDS ORDERED: AMLO-258 PO (06:09)
[2023-10-01] MEDS: FAMOTIDINE 20 MG TABLET PO SCH (09:00)
[2023-10-01 09:19] VITALS: BP 188/111; PULSE 66; RESP 19; TEMP 98.2
[2023-10-01 12:21] VITALS: BP 177/109; PULSE 69; RESP 19; TEMP 98
[2023-10-01 16:23] VITALS: BP 174/117; PULSE 69; RESP 19; TEMP 98
[2023-10-01] MEDS: HydrALAZINE HCL 25 MG TABLET PO SCH (18:50)
[2023-10-01 20:13] VITALS: BP 144/96; PULSE 65; RESP 18; TEMP 98
[2023-10-02 00:16] VITALS: BP 152/93; PULSE 69; RESP 18; TEMP 98.7
[2023-10-02 05:24] VITALS: BP 158/106; PULSE 70; RESP 18; TEMP 98.3
[2023-10-02 07:50] VITALS: BP 175/102; PULSE 62; RESP 18; TEMP 98.3
[2023-10-02 08:59] VITALS: BP 157/97; PULSE 66
[2023-10-02 11:39] VITALS: BP 157/98; PULSE 70; RESP 19; TEMP 98
[2023-10-02 14:50] VITALS: BP 150/93; PULSE 64; RESP 18; TEMP 98.2
[2023-10-02] MEDS ORDERED: HYDR25TA84 PO (14:59)
== END 2023-10-02 16:50 | disposition home or self-care (01) | DRG 199 ==
LOC: EMS 13:58 → 5S 16:02
PROVIDERS: ADMIT Internal Medicine; ATTEND Internal Medicine
DX: I16.1 Hypertensive emergency (principal); F12.90 Cannabis use, unspecified, uncomplicated; I12.9 Hypertensive chronic kidney disease with stage 1 through stage 4 chronic kidney disease, or unspecified chronic kidney disease; Z20.822 Contact with and (suspected) exposure to COVID-19; F16.90 Hallucinogen use, unspecified, uncomplicated; L29.8 Other pruritus; I25.10 Atherosclerotic heart disease of native coronary artery without angina pectoris; N18.30 Chronic kidney disease, stage 3 unspecified; Z91.199 Patient's noncompliance with other medical treatment and regimen due to unspecified reason
CPT/HCPCS: 71045; 80053; 81003; 82550; 83880; 84484; 85025; 93005; 99291; J0360; 36415-L1; 36415-TC

== ENCOUNTER 2023-11-16 23:35 | Emergency (ER) | payer OTHER ==
[~2023-11-16] VITALS: Ht 180.3 cm; Wt 90.9 kg
[~2023-11-16 23:35] MED LIST changes: +AMLO-258 PO; +HYDR25TA84 PO
[2023-11-16 23:42] VITALS: BP 191/124; PULSE 93; RESP 16; TEMP 98
[2023-11-17] MEDS ORDERED: CLOT15CR29 TP (01:37)
== END 2023-11-17 01:45 | disposition home or self-care (01) ==
LOC: EMS 23:36
DX: B35.6 Tinea cruris (principal); I10 Essential (primary) hypertension; I51.9 Heart disease, unspecified; F12.90 Cannabis use, unspecified, uncomplicated
CPT/HCPCS: 99283; Z7502

== ENCOUNTER 2024-04-04 11:59 | Inpatient (IN) | payer OTHER ==
[~2024-04-04] VITALS: Ht 172.7 cm; Wt 88.0 kg
[~2024-04-04 11:59] MED LIST changes: +AMLO-257 PO; -AMLO-258 PO; +FURO20 PO; -HYDR25TA84 PO; +LABE100T51 PO; -LOSA-382 PO; +LOSA-417 PO
[2024-04-04] MEDS ORDERED: 0.9% SODIUM CHLORIDE 10 ML SYRINGE IVP PRN (14:30)
[2024-04-04] MEDS: LABETALOL HCL 5 MG/ML 20 ML VIAL IVP ONE (14:57)
[2024-04-04] MEDS: PIPERACILLIN/TAZO 3.375 GM/D5W 50 ML IV ONE (14:59)
[2024-04-04] MEDS: VANCOMYCIN 1GM/WATER(PEG/NADA) 200 ML IV ONE (15:14)
[2024-04-04 15:23] LABS: BASOPHILS % (AUTO) 1.2 % (0.0-2.0); EOSINOPHILS % (AUTO) 0.8 % (1.0-6.0); HEMATOCRIT 35.9 % (41-53); HEMOGLOBIN 11.7 g/dL (13.5-17.5); LYMPHOCYTES # (AUTO) 1.2 K/uL (1.0-4.8); LYMPHOCYTES % (AUTO) 12.8 % (22.0-44.0); MEAN CORPUSCULAR HEMOGLOBIN 26.9 pg (26.0-34.0); MEAN CORPUSCULAR HGB CONC 32.5 G/dL (31.0-37.0); MEAN CORPUSCULAR VOLUME 83 fL (80-100); MONOCYTES # (AUTO) 0.8 K/uL (0.1-1.0); MONOCYTES % (AUTO) 8.3 % (2.0-9.0); NEUTROPHILS # (AUTO) 7.4 K/uL (1.8-7.7); NEUTROPHILS % (AUTO) 76.9 % (40.0-70.0); PLATELET COUNT (AUTO) 335 K/uL (150-450); RED BLOOD CELL COUNT(AUTO) 4.34 MIL/uL (4.50-5.90); RED CELL DISTRIBUTION WIDTH 17.8 % (11.5-14.5); WHITE BLOOD COUNT (AUTO) 9.7 K/uL (4.5-11.0)
[2024-04-04 15:32] LABS: ANION GAP 13 mmol/L (8-16); CALCIUM, TOTAL 9.6 mg/dL (8.8-10.5); CARBON DIOXIDE 24 mmol/L (22-29); CHLORIDE 102 mmol/L (98-107); CREATININE 2.05 mg/dL (0.60-1.30); GLOMERULAR FILTR. RATE CALC 40 mL/min (>60); GLUCOSE,RANDOM 87 mg/dL (70-110); POTASSIUM 4.7 mmol/L (3.5-5.1); SODIUM SERUM 138 mmol/L (136-145); UREA NITROGEN, BLOOD 40 mg/dL (7-18)
[2024-04-04 15:35] LABS: PROTHROMBIN TIME 10.9 SEC (9.4-11.6)
[2024-04-04 15:41] LABS: LACTIC ACID 1.1 mmol/L (0.4-2.0)
[2024-04-04] MEDS ORDERED: ACETAMINOPHEN 325 MG TABLET PO PRN (15:45)
[2024-04-04] MEDS ORDERED: ONDANSETRON HCL 4 MG/2 ML VIAL IVP PRN (15:45)
[2024-04-04] MEDS ORDERED: ZOLPIDEM TARTRATE 5 MG TABLET PO PRN (15:45)
[2024-04-04] MEDS ORDERED: OxyCODONE HCL/ACETAMINOPHEN 5-325 MG TABLET PO PRN (15:45)
[2024-04-04 15:46] LABS: TROPONIN I-HIGH SENSITIVITY 36 ng/L (<76)
[2024-04-04 15:52] LABS: ALANINE AMINOTRANSFERASE 26 U/L (12-78); ALBUMIN 4.2 g/dL (3.4-5.0); ALKALINE PHOSPHATASE 60 U/L (46-116); ASPARTATE AMINOTRANSFERASE 37 U/L (15-37); BILIRUBIN,TOTAL 0.9 mg/dL (0.1-1.0); CREATINE KINASE, TOTAL ONLY 862 U/L (39-308); TOTAL PROTEIN, SERUM 9.4 g/dL (6.4-8.2)
[2024-04-04] MEDS: AmLODIPine BESYLATE 10 MG TABLET PO SCH (16:07)
[2024-04-04] MEDS: HEPARIN SODIUM,PORCINE 5,000 UNITS/ML VIAL SQ SCH (16:08)
[2024-04-04 16:10] LABS: B-TYPE NATRIURETIC PEPTIDE 143 pg/mL (0-100)
[2024-04-04 18:14] VITALS: BP 185/115; PULSE 84; RESP 18; TEMP 97.6; O2SAT 95
[2024-04-04 19:37] VITALS: BP 170/97; PULSE 92; RESP 18; TEMP 97.8; O2SAT 99
[2024-04-04] MEDS: DOCUSATE SODIUM 100 MG CAPSULE PO SCH (21:00)
[2024-04-04] MEDS ORDERED: SODIUM CHLORIDE 0.9% 250 ML IV ONE (21:06)
[2024-04-04] MEDS: LOSARTAN POTASSIUM 25 MG TABLET PO SCH (21:22)
[2024-04-05] VITALS: BP 132/79; PULSE 93; RESP 18; TEMP 98.1; O2SAT 97
[2024-04-05 04:00] VITALS: BP 168/111; PULSE 90; RESP 18; TEMP 98; O2SAT 96
[2024-04-05] MEDS: HydrALAZINE HCL 20 MG/ML VIAL IVP PRN (04:44)
[2024-04-05 06:50] LABS: CREATININE 1.78 mg/dL (0.60-1.30)
[2024-04-05 07:38] VITALS: BP 170/93; PULSE 94; RESP 18; TEMP 98; O2SAT 97
[2024-04-05] MEDS ORDERED: VANCOMYCIN 1GM/WATER(PEG/NADA) 200 ML IV SCH (08:00)
[2024-04-05] MEDS: FAMOTIDINE 20 MG TABLET PO SCH (09:46)
[2024-04-05 11:29] VITALS: BP 156/96; PULSE 100; RESP 18; TEMP 98.3; O2SAT 96
[2024-04-05 14:04] LABS: APPEARANCE,URINE CLEAR (CLEAR); BILIRUBIN,URINE NEGATIVE (NEGATIVE); COLOR,URINE LIGHT YELLOW (YELLOW); GLUCOSE, URINE (UA) NEGATIVE (NEGATIVE); KETONES,URINE NEGATIVE (NEGATIVE); LEUKOCYTE ESTERASE ,URINE SMALL (NEGATIVE); NITRATE,URINE NEGATIVE (NEGATIVE); OCCULT BLOOD,URINE NEGATIVE (NEGATIVE); PH,URINE 5.5 (5.0-8.0); PROTEIN,URINE TRACE mg/dL (NEGATIVE); UROBILINOGEN,URINE <=1.0 mg/dL (<=1.0)
[2024-04-05 14:09] LABS: PH,URINE DRUG SCREEN 5.5 (5.0-8.0)
[2024-04-05 14:10] LABS: RBC,URINE None Seen /HPF (0-2)
[2024-04-05 14:11] LABS: BACTERIA,URINE None Seen /HPF (None Seen)
[2024-04-05 14:12] LABS: ALCOHOL, URINE DRUG SCREEN NEGATIVE (NEGATIVE); AMPHET/METH SCREEN,URINE NEGATIVE (NEGATIVE); BENZODIAZEPINES SCREEN,URINE NEGATIVE (NEGATIVE); CANNABINOID SCREEN,URINE NEGATIVE (NEGATIVE); COCAINE SCREEN,URINE NEGATIVE (NEGATIVE); METHADONE SCREEN, URINE NEGATIVE (NEGATIVE); OPIATE SCREEN,URINE NEGATIVE (NEGATIVE); PHENCYCLIDINE SCREEN,URINE POSITIVE (NEGATIVE)
[2024-04-05 14:31] LABS: BARBITURATE SCREEN, URINE NEGATIVE (NEGATIVE)
[2024-04-05 15:23] VITALS: BP 163/105; PULSE 90; RESP 18; TEMP 98.2; O2SAT 97
[2024-04-05] MEDS: VANCOMYCIN 1.25 GM/WATER(PEG) 250 ML IV SCH (17:32)
[2024-04-05 20:28] VITALS: BP 154/99; PULSE 91; RESP 16; TEMP 98.2; O2SAT 95
[2024-04-05] MEDS: LOSARTAN POTASSIUM 50 MG TABLET PO SCH (21:24)
[2024-04-06] VITALS (8 sets, daily range): BP systolic 134–182; BP diastolic 82–118; PULSE 84–95; RESP 16–19; TEMP 97.9–98.8; O2SAT 97–99
[2024-04-06 07:03] LABS: CALCIUM, TOTAL 9.1 mg/dL (8.8-10.5); CREATININE 1.79 mg/dL (0.60-1.30); POTASSIUM 4.4 mmol/L (3.5-5.1)
[2024-04-06] MEDS: CloNIDine HCL 0.1 MG TABLET PO PRN (12:10)
[2024-04-06] MEDS: HydrALAZINE HCL 25 MG TABLET PO SCH (15:54)
[2024-04-07] VITALS (7 sets, daily range): BP systolic 135–166; BP diastolic 86–109; PULSE 81–105; RESP 18–19; TEMP 98–98.5; O2SAT 96–100
[2024-04-07 07:27] LABS: CREATININE 1.64 mg/dL (0.60-1.30); POTASSIUM 4.2 mmol/L (3.5-5.1); VANCOMYCIN,RANDOM 14.4 mcg/mL (25.0-50.0)
[2024-04-08 00:10] VITALS: BP 158/100; PULSE 98; RESP 18; TEMP 98.4; O2SAT 97
[2024-04-08 04:29] VITALS: BP 149/94; PULSE 84; RESP 18; TEMP 98.4; O2SAT 97
[2024-04-08 06:46] LABS: CREATININE 1.69 mg/dL (0.60-1.30); POTASSIUM 4.3 mmol/L (3.5-5.1)
[2024-04-08 08:00] VITALS: BP 179/126; PULSE 78; RESP 18; TEMP 98; O2SAT 100
[2024-04-08 12:00] VITALS: BP 166/105; PULSE 93; RESP 18; TEMP 97.2; O2SAT 99
[2024-04-08 16:00] VITALS: BP 151/110; PULSE 85; RESP 18; TEMP 98; O2SAT 100
[2024-04-08 20:18] VITALS: BP 125/89; PULSE 89; PULSE 90; RESP 19; TEMP 98.2; O2SAT 97
[2024-04-09] VITALS (8 sets, daily range): BP systolic 128–177; BP diastolic 85–113; PULSE 82–105; RESP 18–20; TEMP 97.7–98.5; O2SAT 97–100
[2024-04-09 07:46] LABS: CALCIUM, TOTAL 9.1 mg/dL (8.8-10.5); CREATININE 1.58 mg/dL (0.60-1.30); POTASSIUM 4.3 mmol/L (3.5-5.1)
[2024-04-09] MEDS ORDERED: AMOX-457 PO (10:34)
[2024-04-09] MEDS ORDERED: LOSA-382 PO (10:34)
[2024-04-09] MEDS ORDERED: AMLO-258 PO (10:34)
[2024-04-10 05:10] VITALS: BP 149/93; PULSE 85; RESP 20; TEMP 98.3; O2SAT 98
[2024-04-10 07:26] LABS: CREATININE 1.55 mg/dL (0.60-1.30); POTASSIUM 4.4 mmol/L (3.5-5.1)
[2024-04-10 08:00] VITALS: PULSE 72; RESP 20; TEMP 98.4; O2SAT 100
[2024-04-10] MEDS ORDERED: SODIUM CHLORIDE 0.9% 500 ML IV ONE (09:09)
== END 2024-04-10 13:50 | DRG 199 ==
LOC: EMS 11:59 → EDH 15:33 → 5N 17:51 → 6S 04-09 14:55
PROVIDERS: ADMIT Internal Medicine; ATTEND Internal Medicine
DX: I16.1 Hypertensive emergency (principal); F16.90 Hallucinogen use, unspecified, uncomplicated; I87.8 Other specified disorders of veins; I12.9 Hypertensive chronic kidney disease with stage 1 through stage 4 chronic kidney disease, or unspecified chronic kidney disease; L08.9 Local infection of the skin and subcutaneous tissue, unspecified; I89.0 Lymphedema, not elsewhere classified; N18.30 Chronic kidney disease, stage 3 unspecified; N28.9 Disorder of kidney and ureter, unspecified; F19.10 Other psychoactive substance abuse, uncomplicated; Z59.00 Homelessness unspecified; Z79.899 Other long term (current) drug therapy; Z88.8 Allergy status to other drugs, medicaments and biological substances; Z91.199 Patient's noncompliance with other medical treatment and regimen due to unspecified reason
CPT/HCPCS: 71045; 73700; 80048; 80053; 80202; 80307; 81001; 82550; 83605; 83880; 84145; 84484; 85025; 85610; 87040; 87070; 87086; 87186; 87205; 93005; 99285; J0360; J1644; J2543; J3490; J7040; J7050; 36415-L1; 36415-TC

== ENCOUNTER 2025-01-25 10:13 | Inpatient (IN) | payer MEDICAID ==
[~2025-01-25] VITALS: Ht 177.8 cm; Wt 92.0 kg
[~2025-01-25 10:13] MED LIST changes: -AMLO-257 PO; +AMLO-258 PO; +ASPI81TA39 PO; +ATOR-2 PO; +CLON-441 PO; +DOXA1TAB9 PO; -FURO20 PO; +ISOS20TA9 PO; -LABE100T51 PO; +LOSA-382 PO; -LOSA-417 PO; +METO50TA18 PO
[2025-01-25 10:46] LABS: BASOPHILS % (AUTO) 0.8 % (0.0-2.0); EOSINOPHILS % (AUTO) 0.4 % (1.0-6.0); HEMATOCRIT 43.3 % (41-53); HEMOGLOBIN 13.9 g/dL (13.5-17.5); LYMPHOCYTES % (AUTO) 13.9 % (22.0-44.0); MEAN CORPUSCULAR VOLUME 91 fL (80-100); MONOCYTES # (AUTO) 0.3 K/uL (0.1-1.0); MONOCYTES % (AUTO) 3.7 % (2.0-9.0); NEUTROPHILS % (AUTO) 81.2 % (40.0-70.0); PLATELET COUNT (AUTO) 305 K/uL (150-450); RED BLOOD CELL COUNT(AUTO) 4.78 MIL/uL (4.50-5.90); RED CELL DISTRIBUTION WIDTH 19.9 % (11.5-14.5); WHITE BLOOD COUNT (AUTO) 7.3 K/uL (4.5-11.0)
[2025-01-25 10:52] LABS: ANION GAP 8 mmol/L (8-16); CALCIUM, TOTAL 9.1 mg/dL (8.8-10.5); CARBON DIOXIDE 24 mmol/L (22-29); CHLORIDE 106 mmol/L (98-107); CREATININE 2.87 mg/dL (0.60-1.30); GLOMERULAR FILTR. RATE CALC 27 mL/min (>60); GLUCOSE,RANDOM 153 mg/dL (70-110); POTASSIUM 4.8 mmol/L (3.5-5.1); SODIUM SERUM 137 mmol/L (136-145); UREA NITROGEN, BLOOD 51 mg/dL (7-18)
[2025-01-25 10:56] LABS: CREATINE KINASE, TOTAL ONLY 143 U/L (39-308)
[2025-01-25 11:00] LABS: TROPONIN I-HIGH SENSITIVITY 58 ng/L (<76)
[2025-01-25 11:05] LABS: PROTHROMBIN TIME 14.6 SEC (9.4-11.6)
[2025-01-25 11:24] LABS: B-TYPE NATRIURETIC PEPTIDE 3610 pg/mL (0-100)
[2025-01-25] MEDS: FUROSEMIDE 40 MG/4 ML VIAL IVP ONE (11:27)
[2025-01-25] MEDS: ASPIRIN 325 MG TABLET PO ONE (11:27)
[2025-01-25] MEDS: NITROGLYCERIN 2% (1 GM=INCH) OINTMENT PACKET TP ONE ×2 (11:28→14:21)
[2025-01-25] MEDS: AmLODIPine BESYLATE 10 MG TABLET PO ONE (11:28)
[2025-01-25 12:35] LABS: APPEARANCE,URINE CLEAR (CLEAR); BILIRUBIN,URINE NEGATIVE (NEGATIVE); COLOR,URINE LIGHT YELLOW (YELLOW); GLUCOSE, URINE (UA) NEGATIVE (NEGATIVE); KETONES,URINE NEGATIVE (NEGATIVE); LEUKOCYTE ESTERASE ,URINE SMALL (NEGATIVE); NITRATE,URINE NEGATIVE (NEGATIVE); OCCULT BLOOD,URINE NEGATIVE (NEGATIVE); PH,URINE 5.5 (5.0-8.0); PROTEIN,URINE 30-70 mg/dL (NEGATIVE); SPECIFIC GRAVITIY, URINE 1.008 (1.003-1.030); UROBILINOGEN,URINE <=1.0 mg/dL (<=1.0)
[2025-01-25 12:36] LABS: BACTERIA,URINE None Seen /HPF (None Seen); RBC,URINE None Seen /HPF (0-2)
[2025-01-25] MEDS: HydrALAZINE HCL 20 MG/ML VIAL IVP ONE (14:21)
[2025-01-25] MEDS: CloNIDine HCL 0.2 MG TABLET PO ONE (14:49)
[2025-01-25] MEDS ORDERED: HYDROCODONE/ACETAMINOPHEN 5-325 MG TABLET PO PRN (15:00)
[2025-01-25] MEDS ORDERED: ACETAMINOPHEN 325 MG TABLET PO PRN (15:00)
[2025-01-25] MEDS ORDERED: MAGNESIUM HYDROXIDE SUSPENSION 30 ML UDCUP PO PRN (15:00)
[2025-01-25] MEDS ORDERED: BISACODYL 10 MG RECTAL RECTAL SUPPOSITORY PR PRN (15:00)
[2025-01-25] MEDS ORDERED: MORPHINE SULFATE 2 MG/ML SYRINGE IVP PRN (15:00)
[2025-01-25] MEDS ORDERED: ZOLPIDEM TARTRATE 5 MG TABLET PO PRN (15:00)
[2025-01-25] MEDS ORDERED: ONDANSETRON HCL 4 MG/2 ML VIAL IVP PRN (15:00)
[2025-01-25 15:42] LABS: TROPONIN I-HIGH SENSITIVITY 59 ng/L (<76)
[2025-01-25] MEDS: HEPARIN SODIUM,PORCINE 5,000 UNITS/ML VIAL SQ SCH (16:00)
[2025-01-25] MEDS: HydrALAZINE HCL 50 MG TABLET PO SCH (16:32)
[2025-01-25] MEDS: NITROGLYCERIN 2% (1 GM=INCH) OINTMENT PACKET TP SCH (17:19)
[2025-01-25] MEDS: FUROSEMIDE 20 MG/2 ML VIAL IVP SCH (20:42)
[2025-01-25 21:30] VITALS: BP 138/98; PULSE 90; RESP 20; TEMP 97.3; O2SAT 98
[2025-01-25] MEDS: carvediloL 6.25 MG TABLET PO SCH (21:47)
[2025-01-25] MEDS: DOCUSATE SODIUM 100 MG CAPSULE PO SCH (21:47)
[2025-01-25 23:46] LABS: TROPONIN I-HIGH SENSITIVITY 70 ng/L (<76)
[2025-01-26 04:30] VITALS: BP 125/94; PULSE 81; RESP 20; TEMP 97.7; O2SAT 98
[2025-01-26 06:54] LABS: CALCIUM, TOTAL 8.8 mg/dL (8.8-10.5); CREATININE 2.36 mg/dL (0.60-1.30); POTASSIUM 4.1 mmol/L (3.5-5.1)
[2025-01-26 06:56] LABS: BASOPHILS % (AUTO) 0.7 % (0.0-2.0); EOSINOPHILS % (AUTO) 1.2 % (1.0-6.0); HEMATOCRIT 39.8 % (41-53); HEMOGLOBIN 12.6 g/dL (13.5-17.5); LYMPHOCYTES # (AUTO) 0.8 K/uL (1.0-4.8); LYMPHOCYTES % (AUTO) 11.2 % (22.0-44.0); MEAN CORPUSCULAR HEMOGLOBIN 28.6 pg (26.0-34.0); MEAN CORPUSCULAR HGB CONC 31.7 G/dL (31.0-37.0); MEAN CORPUSCULAR VOLUME 90 fL (80-100); MONOCYTES # (AUTO) 0.3 K/uL (0.1-1.0); MONOCYTES % (AUTO) 4.8 % (2.0-9.0); NEUTROPHILS # (AUTO) 5.9 K/uL (1.8-7.7); NEUTROPHILS % (AUTO) 82.1 % (40.0-70.0); PLATELET COUNT (AUTO) 274 K/uL (150-450); RED CELL DISTRIBUTION WIDTH 19.9 % (11.5-14.5); WHITE BLOOD COUNT (AUTO) 7.2 K/uL (4.5-11.0)
[2025-01-26 07:12] LABS: TROPONIN I-HIGH SENSITIVITY 64 ng/L (<76)
[2025-01-26 07:55] VITALS: BP 149/113; PULSE 85; RESP 18; TEMP 97.5; O2SAT 96
[2025-01-26] MEDS: ASPIRIN 81 MG DR TABLET PO SCH (09:17)
[2025-01-26] MEDS: PANTOPRAZOLE SODIUM 40 MG DR TABLET PO SCH (09:18)
[2025-01-26 12:44] VITALS: BP 130/94; PULSE 90; RESP 19; TEMP 98; O2SAT 94
[2025-01-26 15:47] VITALS: BP 137/100; PULSE 84; RESP 19; TEMP 98; O2SAT 97
[2025-01-26] MEDS: HydrALAZINE HCL 50 MG TABLET PO SCH (17:05)
[2025-01-26] MEDS: LIDOCAINE 1% 20 ML VIAL ID ONE (17:30)
[2025-01-26 20:00] VITALS: BP 134/98; PULSE 87; RESP 20; TEMP 97.7; O2SAT 97
[2025-01-26 23:31] VITALS: BP 137/102; PULSE 96; RESP 20; TEMP 97.9; O2SAT 94
[2025-01-27 04:00] VITALS: BP 142/105; PULSE 85; RESP 16; TEMP 97.5; O2SAT 97
[2025-01-27 06:22] LABS: BASOPHILS % (AUTO) 0.4 % (0.0-2.0); EOSINOPHILS % (AUTO) 1.8 % (1.0-6.0); HEMATOCRIT 39.4 % (41-53); HEMOGLOBIN 12.7 g/dL (13.5-17.5); LYMPHOCYTES # (AUTO) 0.6 K/uL (1.0-4.8); LYMPHOCYTES % (AUTO) 8.9 % (22.0-44.0); MEAN CORPUSCULAR HEMOGLOBIN 28.9 pg (26.0-34.0); MEAN CORPUSCULAR HGB CONC 32.3 G/dL (31.0-37.0); MEAN CORPUSCULAR VOLUME 89 fL (80-100); MONOCYTES # (AUTO) 0.5 K/uL (0.1-1.0); MONOCYTES % (AUTO) 6.9 % (2.0-9.0); NEUTROPHILS # (AUTO) 5.8 K/uL (1.8-7.7); PLATELET COUNT (AUTO) 290 K/uL (150-450); RED BLOOD CELL COUNT(AUTO) 4.41 MIL/uL (4.50-5.90); RED CELL DISTRIBUTION WIDTH 19.4 % (11.5-14.5); WHITE BLOOD COUNT (AUTO) 7.1 K/uL (4.5-11.0)
[2025-01-27 06:30] LABS: CALCIUM, TOTAL 8.5 mg/dL (8.8-10.5); CREATININE 2.16 mg/dL (0.60-1.30); POTASSIUM 4.1 mmol/L (3.5-5.1)
[2025-01-27 08:00] VITALS: BP 155/102; PULSE 91; RESP 18; TEMP 97.5; O2SAT 98
[2025-01-27 12:00] VITALS: BP 138/108; PULSE 90; RESP 19; TEMP 97.5; O2SAT 98
[2025-01-27 16:00] VITALS: BP 145/104; PULSE 89; RESP 19; TEMP 97.9; O2SAT 97
[2025-01-27 19:38] VITALS: BP 140/102; PULSE 95; RESP 18; TEMP 98.2; O2SAT 95
[2025-01-27 23:19] VITALS: BP 134/101; PULSE 86; RESP 18; TEMP 98.2; O2SAT 97
[2025-01-28 03:38] VITALS: BP 127/91; PULSE 88; RESP 18; TEMP 98.2; O2SAT 97
[2025-01-28 06:43] LABS: BASOPHILS % (AUTO) 0.5 % (0.0-2.0); HEMATOCRIT 38.7 % (41-53); HEMOGLOBIN 12.4 g/dL (13.5-17.5); LYMPHOCYTES # (AUTO) 0.6 K/uL (1.0-4.8); LYMPHOCYTES % (AUTO) 9.3 % (22.0-44.0); MEAN CORPUSCULAR HEMOGLOBIN 28.7 pg (26.0-34.0); MEAN CORPUSCULAR VOLUME 90 fL (80-100); MONOCYTES # (AUTO) 0.5 K/uL (0.1-1.0); MONOCYTES % (AUTO) 6.7 % (2.0-9.0); NEUTROPHILS # (AUTO) 5.5 K/uL (1.8-7.7); NEUTROPHILS % (AUTO) 80.5 % (40.0-70.0); PLATELET COUNT (AUTO) 284 K/uL (150-450); RED BLOOD CELL COUNT(AUTO) 4.31 MIL/uL (4.50-5.90); RED CELL DISTRIBUTION WIDTH 19.9 % (11.5-14.5); WHITE BLOOD COUNT (AUTO) 6.9 K/uL (4.5-11.0)
[2025-01-28 06:47] LABS: CALCIUM, TOTAL 8.3 mg/dL (8.8-10.5); CREATININE 1.95 mg/dL (0.60-1.30); POTASSIUM 3.6 mmol/L (3.5-5.1)
[2025-01-28 08:09] VITALS: BP 146/108; PULSE 90; RESP 18; TEMP 98.6; O2SAT 97
[2025-01-28 11:37] VITALS: BP 147/110; PULSE 92; RESP 18; TEMP 97.9; O2SAT 99
[2025-01-28 15:42] VITALS: BP 138/105; PULSE 90; RESP 18; TEMP 98.4; O2SAT 97
[2025-01-28 20:00] VITALS: BP 140/93; PULSE 100; RESP 18; TEMP 97.5; O2SAT 96
[2025-01-29] VITALS (7 sets, daily range): BP systolic 119–149; BP diastolic 69–114; PULSE 66–94; RESP 18–20; TEMP 97.7–98.4; O2SAT 92–98
[2025-01-29 06:19] LABS: BASOPHILS % (AUTO) 2.6 % (0.0-2.0); EOSINOPHILS % (AUTO) 2.5 % (1.0-6.0); HEMATOCRIT 38.3 % (41-53); HEMOGLOBIN 12.6 g/dL (13.5-17.5); LYMPHOCYTES # (AUTO) 0.4 K/uL (1.0-4.8); LYMPHOCYTES % (AUTO) 5.3 % (22.0-44.0); MEAN CORPUSCULAR HEMOGLOBIN 29.2 pg (26.0-34.0); MEAN CORPUSCULAR HGB CONC 32.8 G/dL (31.0-37.0); MEAN CORPUSCULAR VOLUME 89 fL (80-100); MONOCYTES # (AUTO) 0.4 K/uL (0.1-1.0); MONOCYTES % (AUTO) 5.2 % (2.0-9.0); NEUTROPHILS # (AUTO) 6.5 K/uL (1.8-7.7); NEUTROPHILS % (AUTO) 84.4 % (40.0-70.0); PLATELET COUNT (AUTO) 289 K/uL (150-450); RED BLOOD CELL COUNT(AUTO) 4.31 MIL/uL (4.50-5.90); RED CELL DISTRIBUTION WIDTH 20.1 % (11.5-14.5); WHITE BLOOD COUNT (AUTO) 7.7 K/uL (4.5-11.0)
[2025-01-29 06:26] LABS: CALCIUM, TOTAL 8.6 mg/dL (8.8-10.5); CREATININE 1.62 mg/dL (0.60-1.30); POTASSIUM 3.9 mmol/L (3.5-5.1)
[2025-01-30 01:10] VITALS: BP 130/94; PULSE 95; RESP 18; TEMP 98.6; O2SAT 96
[2025-01-30 05:28] VITALS: BP 146/105; PULSE 93; RESP 18; TEMP 98.4; O2SAT 96
[2025-01-30 15:30] VITALS: BP 125/98; PULSE 91; RESP 19; TEMP 98.4; O2SAT 96
[2025-01-30 19:54] VITALS: BP 127/95; PULSE 99; RESP 19; TEMP 98.6; O2SAT 95
[2025-01-31] VITALS (7 sets, daily range): BP systolic 128–161; BP diastolic 96–123; PULSE 88–98; RESP 17–18; TEMP 97.9–98.4; O2SAT 94–100
[2025-02-01 00:05] VITALS: BP 141/108; PULSE 98; RESP 16; TEMP 98.2; O2SAT 97
[2025-02-01 06:00] VITALS: BP 145/103; PULSE 93; RESP 18; TEMP 97.8; O2SAT 100
[2025-02-01 08:00] VITALS: BP 154/119; PULSE 94; RESP 18; TEMP 97.4; O2SAT 100
[2025-02-01 12:11] VITALS: BP 135/96; RESP 18; O2SAT 100
[2025-02-01 16:05] VITALS: BP 132/98; PULSE 98; RESP 18; TEMP 98.2; O2SAT 100
[2025-02-01] MEDS: HydrALAZINE HCL 50 MG TABLET PO SCH (16:13)
[2025-02-01 20:20] VITALS: BP 125/89; PULSE 100; RESP 18; TEMP 98.4; O2SAT 97
[2025-02-02] VITALS: BP 130/98
[2025-02-02 04:00] VITALS: BP 128/94; PULSE 92; RESP 18; TEMP 98.1; O2SAT 96
[2025-02-02 09:32] VITALS: BP 144/97; PULSE 92; RESP 18; TEMP 98.4; O2SAT 97
[2025-02-02 16:06] VITALS: BP 139/99; PULSE 89; RESP 18; TEMP 98.1; O2SAT 97
[2025-02-02 19:43] VITALS: BP 150/108; PULSE 96; RESP 21; TEMP 98.2; O2SAT 99
[2025-02-03 04:55] VITALS: BP 135/91; PULSE 87; RESP 18; TEMP 98.6; O2SAT 98
[2025-02-03 08:58] VITALS: BP 138/102; PULSE 89; RESP 20; TEMP 97.7; O2SAT 99
[2025-02-03 12:27] LABS: CREATININE 1.65 mg/dL (0.60-1.30); POTASSIUM 3.9 mmol/L (3.5-5.1)
[2025-02-03 16:24] VITALS: BP 130/98; PULSE 89; RESP 20; TEMP 98.4; O2SAT 98
[2025-02-03 21:05] VITALS: BP 135/91; PULSE 94; RESP 18; TEMP 98.6; O2SAT 100
[2025-02-04 03:51] VITALS: BP 128/84; PULSE 88; RESP 18; TEMP 97.7; O2SAT 99
[2025-02-04] MEDS: FUROSEMIDE 20 MG TABLET PO SCH (08:11)
[2025-02-04 08:57] VITALS: BP 143/108; PULSE 87; RESP 20; TEMP 98.8; O2SAT 99
[2025-02-04 09:18] VITALS: BP 141/96
[2025-02-04 10:39] VITALS: BP 144/99; PULSE 87; RESP 18; TEMP 98.4; O2SAT 98
[2025-02-04 16:14] VITALS: BP 142/100; PULSE 90; RESP 20; TEMP 98.4; O2SAT 100
[2025-02-04 19:48] VITALS: BP 136/99; PULSE 97; RESP 20; TEMP 98.4; O2SAT 97
[2025-02-05 04:00] VITALS: BP 128/94; PULSE 93; RESP 18; TEMP 98.1; O2SAT 98
[2025-02-05 09:03] VITALS: BP 149/100; PULSE 72; RESP 18; TEMP 98.1; O2SAT 100
[2025-02-05] MEDS ORDERED: ASPI-1444 PO (10:16)
[2025-02-05] MEDS ORDERED: CARV-165 PO (10:16)
[2025-02-05] MEDS ORDERED: FURO20TA4 PO (10:16)
[2025-02-05] MEDS ORDERED: AMOX-457 PO (10:16)
[2025-02-05] MEDS ORDERED: HYDR50TA37 PO (10:16)
[2025-02-05 15:28] VITALS: BP 132/91; PULSE 91; RESP 18; TEMP 98.8; O2SAT 100
[2025-02-05 19:31] VITALS: BP 136/93; PULSE 99; RESP 19; TEMP 99; O2SAT 98
[2025-02-05 23:10] VITALS: BP 140/95; PULSE 96; RESP 18; O2SAT 99
[2025-02-06 05:07] VITALS: BP 147/105; PULSE 88; RESP 19; TEMP 98; O2SAT 96
[2025-02-06 08:23] VITALS: PULSE 96; RESP 18; TEMP 98.6; O2SAT 97
[2025-02-06 10:33] VITALS: BP 148/104; RESP 18; O2SAT 97
== END 2025-02-06 15:00 | disposition home or self-care (01) | DRG 194 ==
LOC: EMS 10:15 → EDH 14:54 → 5N 21:16 → 6S 01-31 17:46
PROVIDERS: ADMIT Internal Medicine; ATTEND Internal Medicine
DX: I13.0 Hypertensive heart and chronic kidney disease with heart failure and stage 1 through stage 4 chronic kidney disease, or unspecified chronic kidney disease (principal); N17.0 Acute kidney failure with tubular necrosis; R18.8 Other ascites; L97.529 Non-pressure chronic ulcer of other part of left foot with unspecified severity; I50.33 Acute on chronic diastolic (congestive) heart failure; I16.0 Hypertensive urgency; E78.5 Hyperlipidemia, unspecified; F11.10 Opioid abuse, uncomplicated; N18.9 Chronic kidney disease, unspecified; F12.10 Cannabis abuse, uncomplicated; F10.20 Alcohol dependence, uncomplicated; F16.10 Hallucinogen abuse, uncomplicated; E66.9 Obesity, unspecified; Z91.148 Patient's other noncompliance with medication regimen for other reason; Z68.29 Body mass index [BMI] 29.0-29.9, adult; Z79.82 Long term (current) use of aspirin; Z79.899 Other long term (current) drug therapy; Z59.00 Homelessness unspecified
CPT/HCPCS: 71045; 80048; 81001; 82550; 83880; 84484; 85025; 85610; 85730; 87081; 93005; 93306; 99291; J0360; J1644; J1940; J3490; 36415-L1; 36415-TC

== ENCOUNTER 2025-03-15 13:03 | Emergency (ER) | payer MEDICAID, OTHER ==
[~2025-03-15] VITALS: Ht 180.3 cm; Wt 90.9 kg
[~2025-03-15 13:03] MED LIST changes: +AMLO-257 PO; -AMLO-258 PO; +ASPI-1444 PO; -ASPI81TA39 PO; -ATOR-2 PO; +CARV-165 PO; -CLON-441 PO; -DOXA1TAB9 PO; +HYDR50TA37 PO; -ISOS20TA9 PO; +ISOS30TA92 PO; -LOSA-382 PO; -METO50TA18 PO
[2025-03-15 13:13] VITALS: BP 138/92; PULSE 102; RESP 18; TEMP 97.9; O2SAT 96
[2025-03-15 13:39] LABS: PLATELET COUNT (AUTO) 259 K/uL (150-450); RED BLOOD CELL COUNT(AUTO) 4.06 MIL/uL (4.50-5.90); RED CELL DISTRIBUTION WIDTH 18.6 % (11.5-14.5); WHITE BLOOD COUNT (AUTO) 6.2 K/uL (4.5-11.0)
[2025-03-15 13:47] LABS: CALCIUM, TOTAL 8.7 mg/dL (8.8-10.5); CREATININE 2.1 mg/dL (0.60-1.30); GLOMERULAR FILTR. RATE CALC 39.0 mL/min (>60); GLUCOSE,RANDOM 77.0 mg/dL (70-110); SODIUM SERUM 145.0 mmol/L (136-145); UREA NITROGEN, BLOOD 27.0 mg/dL (7-18)
[2025-03-15] MEDS ORDERED: HYDR25TA2 PO (14:32)
[2025-03-15] MEDS ORDERED: ASPI-1444 PO (14:32)
[2025-03-15] MEDS ORDERED: CARV-165 PO (14:32)
[2025-03-15] MEDS ORDERED: AMLO-257 PO (14:32)
== END 2025-03-15 14:51 | disposition home or self-care (01) ==
LOC: EMS 13:07
DX: R60.0 Localized edema (principal); I12.9 Hypertensive chronic kidney disease with stage 1 through stage 4 chronic kidney disease, or unspecified chronic kidney disease; N18.9 Chronic kidney disease, unspecified; F12.90 Cannabis use, unspecified, uncomplicated; Z88.8 Allergy status to other drugs, medicaments and biological substances; Z79.82 Long term (current) use of aspirin; Z59.00 Homelessness unspecified; Z79.899 Other long term (current) drug therapy
CPT/HCPCS: 80048; 85025; 99283